=== PATIENT | female | born 1955 | race Caucasian/White ===

== ENCOUNTER 2022-02-13 20:52 | Observation (INO) ==
[2022-02-13] MEDS ORDERED: 0.9 % Sodium Chloride 1,000 ML IV ONE (21:10)
[2022-02-13 21:29] LABS: Basophils # 0.1 K/mcL (0.0-0.2); Basophils % 0.5 %; Eosinophils # 0.1 K/mcL (0.0-0.6); Eosinophils % 0.6 %; Hematocrit 31.7 % (35.3-44.9); Hemoglobin 10.7 g/dL (11.5-15.4); Immature Granulocytes % 2.1 % (0-4); Lymphocytes % 6.5 %; Mean Corpuscular HGB Conc 33.8 g/dL (31.6-35.5); Mean Corpuscular Volume 79.8 fL (83.0-100.0); Monocytes # 0.8 K/mcL (0.0-1.3); Monocytes % 4.8 %; Neutrophils # 13.6 K/mcL (1.6-8.9); Platelet Count 257 K/mcL (140-400); Red Blood Count 3.97 M/mcL (3.82-4.97); Red Cell Distribution Width 13.2 % (11.5-14.5); Segmented Neutrophils % 85.5 %; White Blood Count 15.9 K/mcL (4.3-11.1)
[2022-02-13 21:51] LABS: BUN/Creatinine Ratio 14 (6-26); Blood Urea Nitrogen 31 mg/dL (8-23); Calcium 8.5 mg/dL (8.6-10.3); Carbon Dioxide 22 mEq/L (23-29); Chloride 94 mEq/L (98-107); Glucose 605 mg/dL (70-105); Osmolality,Calculated 299 (280-300); Potassium 4.2 mEq/L (3.5-5.1); Sodium 127 mEq/L (136-145); eGFR For African Americans 26 (> 60); eGFR For Non-African Americans 22 (> 60)
[2022-02-13 21:54] LABS: VBG HCO3 21 mEq/L (21-27); VBG PCO2 42 mmHg (41-51); VBG PO2 47 mmHg (25-50)
[2022-02-13 22:08] LABS: Bilirubin,Urine Negative (Negative); Blood,Urine Negative (Negative); Clarity,Urine Clear (Clear); Color,Urine Light-Yellow (Yellow); Glucose,Urine (UA) >=1000 mg/dL (Normal); Hyaline Casts,Urine Many per lpf (None Seen); Ketones,Urine Negative (Negative); Leukocyte Esterase,Urine Small (Negative); Mucus,Urine Few per lpf (None-Few); Nitrite,Urine Negative (Negative); Protein,Urine 100 mg/dL (Neg-Trace); RBC,Urine 0-3 per hpf (0-3); Renal Epithelial Cells,Urine Few per hpf (None-Few); Specific Gravity,Urine 1.022 (1.010-1.025); Squamous Epithelial Cell,Urine Few per hpf (None-Few); Urobilinogen,Urine Normal (Normal)
[2022-02-13 22:42] LABS: Influenza A PCR Negative (Negative); Influenza B PCR Negative (Negative); Resp. Syncytial Virus PCR Negative (Negative); SARS-CoV-2 by PCR (In House) Negative (Negative)
[2022-02-13] MEDS ORDERED: cefTRIAXone 1,000 MG in 0.9 % Sodium Chloride Mini Bag 100 ML IVPB ONE (23:22)
[2022-02-13] MEDS ORDERED: Azithromycin 500 MG in 0.9 % Sodium Chloride 250 ML IVPB ONE (23:22)
[2022-02-13] MEDS ORDERED: Ipratropium/Albuterol Neb 3 ML IH ONE (23:23)
[2022-02-13 23:25] LABS: Troponin I < 0.03 ng/mL (< 0.04)
[2022-02-13] MEDS ORDERED: Insulin Human Regular 10 UNIT in 0.9 % Sodium Chloride 10 ML IV ONE (23:54)
[2022-02-14] MEDS ORDERED: Naloxone 0.4 MG/ML INJ IVP PRN (01:53)
[2022-02-14] MEDS ORDERED: Ondansetron 4 MG/2 ML VIAL IVP PRN (01:53)
[2022-02-14] MEDS ORDERED: Melatonin 3 MG TABLET PO PRN (01:53)
[2022-02-14] MEDS ORDERED: Acetaminophen 325 MG TABLET PO PRN (01:53)
[2022-02-14] MEDS ORDERED: Dextrose Gel 15 GM/37.5 ML TUBE PO PRN ×2 (01:55)
[2022-02-14] MEDS ORDERED: D5% in Water 1,000 ML IVC PRN (01:55)
[2022-02-14] MEDS ORDERED: *HR* Dextrose 50 % in Water (Syg) 50 ML SYRINGE IVP PRN (01:55)
[2022-02-14 04:48] LABS: Basophils # 0.1 K/mcL (0.0-0.2); Basophils % 0.5 %; Eosinophils # 0.1 K/mcL (0.0-0.6); Eosinophils % 0.7 %; Hematocrit 25.5 % (35.3-44.9); Hemoglobin 8.6 g/dL (11.5-15.4); Immature Granulocytes % 2.2 % (0-4); Lymphocytes # 1.3 K/mcL (0.6-4.6); Lymphocytes % 11.4 %; Mean Corpuscular HGB Conc 33.7 g/dL (31.6-35.5); Mean Corpuscular Hemoglobin 26.5 pg (28.0-33.3); Mean Corpuscular Volume 78.5 fL (83.0-100.0); Mean Platelet Volume 9.9 fL (9.4-12.4); Monocytes # 0.7 K/mcL (0.0-1.3); Monocytes % 6.7 %; Neutrophils # 8.7 K/mcL (1.6-8.9); Platelet Count 193 K/mcL (140-400); Red Blood Count 3.25 M/mcL (3.82-4.97); Red Cell Distribution Width 13.1 % (11.5-14.5); Segmented Neutrophils % 78.5 %; White Blood Count 11.1 K/mcL (4.3-11.1)
[2022-02-14 05:01] LABS: Albumin 3.3 g/dL (3.5-5.7); Albumin/Globulin Ratio 1.1 (1.1-2.2); Bilirubin,Total 0.3 mg/dL (0.3-1.0); Calcium 7.9 mg/dL (8.6-10.3); Magnesium 1.7 mg/dL (1.6-2.6); Phosphorous 2.6 mg/dL (2.7-4.5); Potassium 3.3 mEq/L (3.5-5.1); Total Protein 6.3 g/dL (6.4-8.9)
[2022-02-14] MEDS ORDERED: 0.9 % Sodium Chloride 1,000 ML IVC SCH ×2 (06:30→09:48)
[2022-02-14] MEDS ORDERED: Potassium Chloride Elixir 20 MEQ/15 ML UDC PO ONE (07:42)
[2022-02-14] MEDS: Insulin DETEMIR 100 UNIT/ML X5UNITS SUBQ SCH ×2 (08:16→20:25)
[2022-02-14] MEDS: Insulin LISPRO 300 UNITS/3 ML VIAL SUBQ SCH ×5 (08:17→20:19)
[2022-02-14 09:46] LABS: Hematocrit 28.2 % (35.3-44.9); Hemoglobin 9.5 g/dL (11.5-15.4); Mean Corpuscular HGB Conc 33.7 g/dL (31.6-35.5); Mean Corpuscular Hemoglobin 26.6 pg (28.0-33.3); Mean Platelet Volume 9.8 fL (9.4-12.4); Platelet Count 227 K/mcL (140-400); Red Blood Count 3.57 M/mcL (3.82-4.97); Red Cell Distribution Width 13.2 % (11.5-14.5); White Blood Count 11.9 K/mcL (4.3-11.1)
[2022-02-14] MEDS ORDERED: DIPHENHYDRAMINE PO PRN (14:57)
[2022-02-14] MEDS ORDERED: ACETAMINOPHEN PO PRN (14:57)
[2022-02-14] MEDS ORDERED: [UNRECOGNIZED DRUG - OTHER] PO PRN (14:57)
[2022-02-14] MEDS: hydrALAZINE 25 MG TABLET PO SCH ×2 (16:32→20:21)
[2022-02-14] MEDS ORDERED: Azithromycin 500 MG in D5% in Water 250 ML IVPB SCH (20:00)
[2022-02-14] MEDS ORDERED: cefTRIAXone 1,000 MG in 0.9 % Sodium Chloride 10 ML IVP ONE (20:00)
[2022-02-14] MEDS: Metoprolol XL (24 HR) Succ 50 MG TAB.ER.24H PO SCH (20:20)
[2022-02-15 07:25] VITALS: TEMP 98; O2SAT 95
[2022-02-15] MEDS: Insulin LISPRO 300 UNITS/3 ML VIAL SUBQ SCH ×2 (07:59→13:29)
[2022-02-15] MEDS: Metoprolol XL (24 HR) Succ 50 MG TAB.ER.24H PO SCH (08:00)
[2022-02-15] MEDS: hydrALAZINE 25 MG TABLET PO SCH (08:00)
[2022-02-15 08:58] LABS: Calcium 8.4 mg/dL (8.6-10.3); Potassium 4.1 mEq/L (3.5-5.1)
[2022-02-15] MEDS ORDERED: Insulin DETEMIR 100 UNIT/ML X5UNITS SUBQ SCH (09:00)
[2022-02-15 09:13] LABS: Basophils # 0.1 K/mcL (0.0-0.2); Basophils % 0.6 %; Eosinophils # 0.2 K/mcL (0.0-0.6); Eosinophils % 2.2 %; Hematocrit 28.5 % (35.3-44.9); Hemoglobin 9.3 g/dL (11.5-15.4); Immature Granulocytes % 2.7 % (0-4); Lymphocytes # 1.5 K/mcL (0.6-4.6); Lymphocytes % 15.1 %; Mean Corpuscular HGB Conc 32.6 g/dL (31.6-35.5); Mean Corpuscular Hemoglobin 26.2 pg (28.0-33.3); Mean Corpuscular Volume 80.3 fL (83.0-100.0); Mean Platelet Volume 9.7 fL (9.4-12.4); Monocytes # 0.6 K/mcL (0.0-1.3); Monocytes % 6.1 %; Neutrophils # 7.1 K/mcL (1.6-8.9); Platelet Count 236 K/mcL (140-400); Red Blood Count 3.55 M/mcL (3.82-4.97); Red Cell Distribution Width 13.2 % (11.5-14.5); Segmented Neutrophils % 73.3 %; White Blood Count 9.7 K/mcL (4.3-11.1)
[2022-02-15 11:28] VITALS: BP 154/80; PULSE 74
== END 2022-02-15 13:49 | disposition home or self-care (01) ==
LOC: EMEROOARM 20:52 → 2ANU 20:52
PROVIDERS: ADMIT Internal Medicine; ATTEND Internal Medicine